=== PATIENT | male | born 1940 | race Caucasian/White ===

== ENCOUNTER 2016-11-17 09:42 | Day surgery (SDC) | payer BC ==
--- NOTE | ~2016-11-17 | EGD ---
EGD REPORT [facility] [address] [place] [address] NAME: MARLEE RASMUSSEN JR : 36 STATUS : REG [facility]#: [id number] AGE: 76 ADM/REG DATE : 11/17/16 MR#: [id number] REPORT SERV DATE: 11/17/16 DICTATED BY: ANI IVEY DATE: 11/17/16 REPORT STATUS : Draft TRANSCRIBED BY: [facility] DATE: 11/17/16 Endoscopy Center Patient Name: Marlee Rasmussen Date of : 1940 Attending MD: ANI IVEY MD Procedure Date No Time: 11/17/2016 Procedure: Colonoscopy Indications: High risk colon cancer surveillance: Personal history of colonic polyps, Last colonoscopy: 2013 Referring MD: MARIANA ROBERTS Medicines: See the Anesthesia note for documentation of the administered medications Complications: No immediate complications. Procedure: Pre-Anesthesia Assessment: - ASA Grade Assessment: III - A patient with severe systemic disease. After I obtained informed consent, the scope was passed under direct vision. Throughout the procedure, the patient's blood pressure, pulse, and oxygen saturations were monitored continuously. The CF [id number] was introduced through the anus and advanced to the cecum, identified by appendiceal orifice and ileocecal valve. The colonoscopy was performed without difficulty. The patient tolerated the procedure well. The quality of the bowel preparation was adequate. Findings: The perianal and digital rectal examinations were normal. Diverticula were found in the sigmoid colon. Internal hemorrhoids were found during retroflexion and were medium-sized. A sessile polyp was found in the distal sigmoid colon. The polyp was 10 mm in size. The polyp was removed with a hot snare. Resection and retrieval were complete. Two sessile polyps were found in the rectum. The polyps were small in size. These polyps were removed with a cold biopsy forceps. Resection and retrieval were complete. Impression: - Diverticulosis in the sigmoid colon. - Internal hemorrhoids. - One 10 mm polyp in the distal sigmoid colon. Resected and retrieved. - Two small polyps in the rectum. Resected and retrieved. Recommendation: - Patient has a contact number available for EGD REPORT [address] [address] NAME: MARLEE RASMUSSEN : 36 STATUS : [facility] [place] PAT#: [id number] AGE: 76 ADM/REG DATE : 11/17/16 MR#: [id number] REPORT SERV DATE: 11/17/16 DICTATED BY: ANI IVEY DATE: 11/17/16 REPORT STATUS : Draft TRANSCRIBED BY: [employer] DATE: 11/17/16 emergencies. The signs and symptoms of potential delayed complications were discussed with the patient. Return to normal activities tomorrow. Written discharge instructions were provided to the patient. - Regular diet. - Continue present medications. - FOR YOUR BIOPSY RESULTS: Please go to [email or web address] and register to receive your results via the portal. Your biopsy results will be posted there in about 7 to 10 days. IF you do not see result in 10 days, call office. - Repeat colonoscopy is not recommended for surveillance. Procedure Code(s): --- Professional --- 70024, Colonoscopy, flexible, proximal to splenic flexure; with removal of tumor(s), polyp(s), or other lesion(s) by snare technique [id number], 59, Colonoscopy, flexible, proximal to splenic flexure; with biopsy, single or multiple Diagnosis Code(s): --- Professional --- K64.8, Other hemorrhoids K57.30, Diverticulosis of large intestine without perforation or abscess without bleeding K62.1, Rectal polyp D12.5, Benign neoplasm of sigmoid colon Z86.010, Personal history of colonic polyps CPT copyright 2013 [employer]. All rights reserved. The codes documented in this report are preliminary and upon movie stunt performer review may be revised to meet current compliance requirements. Ani Ivey MD ANI IVEY MD 11/17/2016 10:58 AM This report has been signed electronically. Number of Addenda: 0 Note Initiated On: 11/17/2016 10:35 AM Scope Withdrawal Time 0 hours 12 minutes 1 second [id number] [place] [address]
[~2016-11-17 09:42] MED LIST: ASAB PO; FESO4 PO; FLOMAX4 PO; LEVAQUIN750 MG PO; LIPITOR20 PO; LOP25 PO; LOTREL1 CA2 PO; MICRO-K10 MEQ PO; NORCO1 TA1 PO; NTG150 SL; PCET PO; PRIN5 PO; PROTONIX PO; PYR200 PO; Z300 PO; ZYVOXPO PO
== END 2016-11-17 23:59 | disposition home or self-care (01) ==
LOC: DMU 09:42
PROVIDERS: Internal Medicine Gastroenterology
PROC: 0DBN8ZZ Excision of Sigmoid Colon, Via Natural or Artificial Opening Endoscopic (ICD-10-PCS; principal; 2016-11-17 11:00)
PROC: 0DBP8ZZ Excision of Rectum, Via Natural or Artificial Opening Endoscopic (ICD-10-PCS; 2016-11-17 11:00)
DX: K63.5 Polyp of colon (principal); K62.1 Rectal polyp; K57.30 Diverticulosis of large intestine without perforation or abscess without bleeding; K64.8 Other hemorrhoids; K21.9 Gastro-esophageal reflux disease without esophagitis; I12.9 Hypertensive chronic kidney disease with stage 1 through stage 4 chronic kidney disease, or unspecified chronic kidney disease; N18.9 Chronic kidney disease, unspecified; I25.10 Atherosclerotic heart disease of native coronary artery without angina pectoris; E78.00 Pure hypercholesterolemia, unspecified; M10.9 Gout, unspecified; H91.93 Unspecified hearing loss, bilateral; Z90.49 Acquired absence of other specified parts of digestive tract; Z95.1 Presence of aortocoronary bypass graft; Z95.2 Presence of prosthetic heart valve; Z96.1 Presence of intraocular lens; Z98.41 Cataract extraction status, right eye; Z98.42 Cataract extraction status, left eye; Z88.0 Allergy status to penicillin; Z86.010 Personal history of colon polyps; Z87.891 Personal history of nicotine dependence; Z87.442 Personal history of urinary calculi; Z79.82 Long term (current) use of aspirin; Z79.899 Other long term (current) drug therapy; Z98.890 Other specified postprocedural states
CPT/HCPCS: 88305